=== PATIENT | male | born 1965 | race Caucasian/White ===

== ENCOUNTER 2017-05-12 05:16 | Day surgery (SDC) | payer BC ==
[2017-05-12] MEDS ORDERED: Dextrose 5%-0.45% NaCl 1,000 ML IV SCH (06:00)
[2017-05-12] MEDS ORDERED: Sodium Chloride 0.9% 10 ML Syringe FLUSH PRN (06:00)
[2017-05-12] MEDS ORDERED: Midazolam 1 MG/ML 2 ML SDV ONE (06:04)
[2017-05-12] MEDS ORDERED: fentaNYL 100 MCG/2 ML SDV ONE (06:05)
[2017-05-12] MEDS ORDERED: fentaNYL 100 MCG/2 ML SDV IV ONE ×3 (06:30→15:10)
[2017-05-12] MEDS ORDERED: Midazolam 1 MG/ML 2 ML SDV IV ONE ×3 (06:31→15:10)
[2017-05-12 08:09] VITALS: BP 109/76
--- NOTE | 2017-05-12 08:35 | OR ---
DATE: 05/12/2017 PROCEDURE: Esophagogastroduodenoscopy and multiple pinch biopsies. INSTRUMENT USED: GIF-H180 Olympus video panendoscope. PREMEDICATIONS: No oral topical anesthesia used. Fentanyl 100 mcg intravenous, Versed 2 mg intravenous. The procedure was done under pulse oximetry, BP recording, and strap folding machine operator. INDICATION: The patient with multiple longstanding abdominal symptoms unexplained and not responsive to medical measures. DESCRIPTION OF PROCEDURE: Esophagogastroduodenoscopy is performed for detection of any active erosive lesions. [place] esophagus and/or malignancy also under consideration. H. pylori status to be determined. Small bowel biopsies to be obtained for celiac disease if indicated. Endoscopic hemostasis therapy if needed. The scope was passed with ease. Adequate visualization of the esophagus was made from proximal to distal areas. No upper esophageal lesions identified. No distal esophageal stricture. No uphill or downhill esophageal varices. No Mary-Kamara tear. No evidence of erosive esophagitis by Jennings criteria. No esophageal polyp or tumor mass identified. Z-line was seen at around 40 cm distal to the oral verge. Configuration consistent with Grade 1 by Zapp classification. No proximal gastric varices noted. Gastric fundus examination by retroflexion showed no polypoid lesions. No gastric ulcer, malignancy, or vascular ectasia identified. Duodenal bulb showed prominent Ayaan glands. Visualized the second part of the duodenum. It was unremarkable. Ampulla of Vater was found to be normal. Multiple pinch biopsies, four in number, were taken from different parts of the second part of the duodenum; and also, biopsies were taken from the duodenal bulb at 9 o'clock and 12 o'clock positions and sent for any histopathologic evidence of celiac disease. Multiple pinch biopsies were obtained from the gastric antrum and proximal body and sent for PyloriTek test for H. pylori histopathology. No bleeding was noted from any of the visualized areas at the completion of examination. Photographs were taken of the duodenal bulb, gastric antrum, fundus, and distal esophagus. IMPRESSION: Normal study. The patient tolerated the procedure well. [facility] /[id number]
== END 2017-05-12 08:45 | disposition home or self-care (01) ==
LOC: DL.ENDO 05:16
PROVIDERS: ATTEND Internal Medicine Gastroenterology
DX: K31.89 Other diseases of stomach and duodenum (principal); E66.09 Other obesity due to excess calories; E78.00 Pure hypercholesterolemia, unspecified; Z98.890 Other specified postprocedural states; Z79.899 Other long term (current) drug therapy
CPT/HCPCS: 43239; 87077; J2250; J3010; J7042

== ENCOUNTER → 2017-05-15 | Day surgery (SDC) | payer BC ==
[~2017-05-15] MED LIST: Dextrose 5%-0.45% NaCl 1,000 ML IV ONE; Dextrose 5%-0.45% NaCl 1,000 ML IV SCH; Midazolam 1 MG/ML 2 ML SDV IV ONE; Midazolam 1 MG/ML 2 ML SDV ONE; Sodium Chloride 0.9% 10 ML Syringe FLUSH PRN; fentaNYL 100 MCG/2 ML SDV IV ONE; fentaNYL 100 MCG/2 ML SDV ONE
--- NOTE | 2017-05-15 12:52 | OR ---
DATE: 05/15/2017 PROCEDURE: Total colonoscopy. INSTRUMENT USED: CF-H180 [place] Olympus video colonoscope, Olympus distal disposable attachment. PREMEDICATIONS: Fentanyl 125 mcg intravenous, Versed 4 mg intravenous, nasal 2 L O2 cannula. The procedure was done under pulse oximetry, BP recording, and blocking machine operator second. INDICATION: The patient with persistent abdominal pain as well as bloating unexplained and not responsive to medical measures. Colonoscopic examination is done for detection of any polypoid lesions and removal, endoscopic hemostasis therapy if needed. DESCRIPTION OF PROCEDURE: Initial rectal exam was unremarkable. Rigid anoscopy was normal. The colonoscope was passed with ease. Few diverticula were noted in the distal left colon along with some deformity. The scope was passed with ease up to the ileocecal area. Photographs were taken of the normal-appearing cecum identified by landmarks of appendiceal orifice and double-bulged ileocecal folds. No bleeding was noted from any of the visualized areas at the commencement of the examination. No stricture. No vascular ectasia. No large isolated ulcerations seen. No evidence of diffuse inflammatory bowel disease in the form of friability, contact bleeding, or ulcerations. No polyp or tumor mass identified. Probing the proximal sides of folds and flexures using adequate distention and clearing of the stool material, withdrawal of the scope was made. Cecum to rectum time over 6 minutes. No bleeding was noted from any of the visualized areas at the completion of examination. IMPRESSION: Diverticulosis. The patient tolerated the procedure well. [facility] /[id number]
[2017-05-15 14:21] VITALS: BP 109/65
== END | disposition home or self-care (01) ==
LOC: DL.ENDO 05:39
PROVIDERS: ATTEND Internal Medicine Gastroenterology
DX: K57.30 Diverticulosis of large intestine without perforation or abscess without bleeding (principal); E78.5 Hyperlipidemia, unspecified; E66.9 Obesity, unspecified; Z98.890 Other specified postprocedural states; Z79.899 Other long term (current) drug therapy; Z87.891 Personal history of nicotine dependence
CPT/HCPCS: 45378; J7042; J2250; J3010

== ENCOUNTER 2024-06-08 12:04 | Emergency (ER) | payer BC ==
[2024-06-08 12:58] VITALS: BP 147/88; PULSE 50
[2024-06-08] MEDS: Diphtheria,Pertussis(Acell),Tetanus Vaccine 0.5 ML Syringe IM ONE (13:09)
[2024-06-08] MEDS: Lidocaine 1% 5 ML VIAL INJECT ONE (13:10)
[2024-06-08] MEDS: Lidocaine 1% 5 ML VIAL ONE (13:10)
[2024-06-08] MEDS ORDERED: Bacitracin Oint 1 GM U/D Packet ONE (13:20)
[2024-06-08] MEDS: Bacitracin Oint 1 GM U/D Packet TOP ONE (13:22)
== END 2024-06-08 13:28 | disposition home or self-care (01) ==
LOC: DL.ED 12:04
DX: S61.011A Laceration without foreign body of right thumb without damage to nail, initial encounter (principal); Z23 Encounter for immunization; E78.00 Pure hypercholesterolemia, unspecified; E66.9 Obesity, unspecified; Z79.899 Other long term (current) drug therapy; W26.8XXA Contact with other sharp object(s), not elsewhere classified, initial encounter
CPT/HCPCS: 12001; 90471; 90715; 99282; 99283; A9270; J3490